=== PATIENT | male | born 2005 | race Caucasian/White ===

== ENCOUNTER 2025-02-02 13:44 | Emergency (ER) | payer MEDICAID ==
[~2025-02-02] VITALS: Ht 180.3 cm; Wt 66.0 kg
[2025-02-02 14:06] VITALS: BP 112/70; PULSE 88; RESP 16; TEMP 97.8; O2SAT 98
[2025-02-02] MEDS ORDERED: OLAN-38 PO (14:19)
--- NOTE | 2025-02-02 14:20 | Physician Documentation ---
HPI ~ General Chief Complaint: Medication Request Stated Complaint: MED REQUEST Time Seen by MD: 14:12 Source: patient Mode of Arrival: POV Exam Limitations: no limitations History of Present Illness HPI Comments 19-year-old male requesting medication refill for his olanzapine for schizophrenia. Reason for Medication Refill: ran out of medication Past Medical History Past Medical History: *PSYCH*, Schizophrenia Past Surgical History: noncontributory Drug Use: none Lives In: Home Occupation: unemployed Review of Systems All Other Systems at this time: Reviewed and Negative Psychiatric: Reports: see HPI Physical Exam Physical Exam Vital Signs: RN Vital Signs have been reviewed: Yes, Temperature: 97.8, Source: Temporal, Heart Rate: 88, Respiratory Rate: 16, BP: 112/70, Pulse Oximetry: 98, Weight: 66.000 Oxygen Flow Rate: 0 Physical Exam General: Alert, no apparent distress. HEENT: moist mucous membranes. Neck: Full range of motion. Respiratory: No respiratory distress speaking in full sentences Chest: No accessory muscle use. Cardiovascular: Appears well perfused Neurologic: Oriented x4. Psychiatric: Normal mood and affect. Skin: Normal color, warm and dry. No edema, no ecchymosis. Progress Results/Orders Results/Orders Vital Signs 02/02/25 14:06 Temp 97.8 Pulse 88 Resp 16 B/P (MAP) 112/70 Pulse Ox 98 O2 Flow Rate 0 Medical Decision Making Additional information obtaine: old records Findings Patient will receive refill of medication discussed following up with primary care for further treatment and evaluation Differential Dx:Considerations: Include: Psychosocial, Medication refill Departure Time of Disposition: 14:18 Disposition: 01 HOME / SELF CARE / HOMELESS Impression: Primary Impression: General medical exam Condition: Stable Discharge Instructions: Medical Screening Exam Referrals: NO PRIMARY CARE PROVIDER (PCP) Prescriptions Olanzapine (Olanzapine) 10 Mg Tablet 1 TAB PO HS for 30 Days, #30 TAB 0 Refills Prov: ASHLEY GAMEZ NP 02/02/25 Education Educated: Patient Educated regarding: diagnosis, treatment, need for follow up Signature Scribe Signature: No scribed Attestation: The note accurately reflects work and decisions made by me.Ashley CARL 02/02/25 14:19 ASHLEY GAMEZ NP Feb 02, 2025 14:20
== END 2025-02-02 14:40 | disposition home or self-care (01) ==
LOC: ER 13:45
DX: Z00.00 Encounter for general adult medical examination without abnormal findings (principal); F20.9 Schizophrenia, unspecified; Z76.0 Encounter for issue of repeat prescription
CPT/HCPCS: 99282

== ENCOUNTER 2025-02-22 20:19 | Emergency (ER) | payer MEDICAID ==
[~2025-02-22] VITALS: Ht 180.3 cm; Wt 63.6 kg
[~2025-02-22 20:19] MED LIST: OLAN-38 PO
--- NOTE | 2025-02-22 21:25 | Physician Documentation ---
History of Present Illness ~ Chief Complaint: Mental Health Eval Stated Complaint: MH Time Seen by MD: 21:19 HPI This is a 20-year-old gentleman who presents with a request to be placed on 72 hour mental health hold. He states that he is experiencing auditory hallucinations, disorganized thoughts, delusions. This has been going on for a while. No palliating or aggravating factors. He is supposed to be on olanzapine at home. He reports use of marijuana, vaping nicotine, use of meth. With a respect to somatic complaints he complains of chronic shortness a breath. No significant change, not really affecting, right now. Denies any chest pain. Medication Reconciliation Allergies: Coded Allergies: No Known Allergies (Unverified , 02/22/25) Scheduled Olanzapine (Olanzapine), 1 TAB PO HS, (Reported) Discontinued Medications Olanzapine (Olanzapine), 1 TAB PO HS Discontinued Reason: Other Past Medical History Past Medical History: *PSYCH*, Schizophrenia Past Surgical History: noncontributory Drug Use: none Lives In: Home Occupation: unemployed Review of Systems ROS 10 point review of systems was performed and unless noted above in HPI is negative for acute process/complaint. Physical Exam Vital Signs: Temperature: 98.2, Source: Temporal, Heart Rate: 88, Respiratory Rate: 16, BP: 128/76, Pulse Oximetry: 96, Weight: 63.600 Physical Exam GENERAL: Awake, alert, oriented, GCS 15, no apparent distress, non-toxic appearing, answers questions, follows commands appropriately. Pleasant young man who was examined in RAp room HEENT: Atraumatic, normocephalic, pupils equal, extraocular muscles intact, sclerae anicteric, mucus membranes moist, oropharynx is clear, no stridor. NECK: supple, full active range of motion, trachea midline, no thyromegaly, no lymphadenopathy, no JVD. CARDIOVASCULAR: regular rate/rhythm, no murmurs/gallops/rubs, Pulses are 2+ in all extremities and symmetric. Capillary refill less than 2 seconds. PULMONARY: Nonlabored, good air movement ,no respiratory distress, speaking in full sentences, clear to auscultation bilaterally, no wheezing, no ronchi, no rales, no accessory muscle use. GASTROINTESTINAL: Soft, non-tender, non-distended, normal active bowel sounds, no organomegaly, no pulsatile masses, no CVA tenderness. NEUROLOGIC: Lucid with normal mental status. Normal facial symmetry. Moves all extremities symmetrically and with purpose. No truncal ataxia. Speech is fluid without evidence of dysarthria or aphasia, no focal deficits appreciated. MUSCULOSKELETAL: There is full range of motion of all extremities. There is no joint pain or joint swelling or joint erythema. There is no muscle pain or tenderness or swelling. EXTREMITIES: warm, well-perfused, no cyanosis, no clubbing, no edema, no acute deformities. Skin: warm, dry, no rashes or lesions, no jaundice, no petechiae orpurpura. No ecchymosis. PSYCHIATRIC: Normal affect, normal insight, normal concentration. Focused exam: [Currently isn't responding to internal stimuli] Progress Results/Orders Results/Orders Orders - MARK CANALES DO Med Rec (02/22/25 21:21) 1799.11 (02/22/25 21:21) Close Observation Level (02/22/25 21:21) Covid19 Binax Poc Result Entry (02/22/25 21:21) Substance Use Navigator (02/22/25 21:21) Regular Diet (02/23/25 Breakfast) Chest,Two Views (02/22/25 21:21) Completed Orders - MARK CANALES DO Cbc/Diff (02/22/25 21:21) Urinalysis (02/22/25 21:21) Drug Screen, Urine (02/22/25 21:21) Ethanol (02/22/25 21:21) TSH (02/22/25 21:21) Electrocardiogram (02/22/25 21:21) Chest,Two Views (02/22/25 21:21) Hs Troponin I W Calculations (02/22/25 21:21) CMP (02/22/25 21:21) Influenza Type A&B Rapid Test (02/22/25 21:50) Nicotine 7mg Patch - 24hr (Habitrol Patc (02/22/25 22:48) Nicotine 14mg Patch-24hr (Habitrol Patch (02/22/25 22:49) Olanzapine Tablet (Zyprexa Tablet) (02/23/25 00:22) Olanzapine Tablet (Zyprexa Tablet) (02/23/25 21:00) Medications Received in ER Medications (Trade) Dose Ordered Sig/Lana Route PRN Reason Start Time Stop Time Status Last Admin Dose Admin (Habitrol patch) 1 patch STK-MED ONCE TD 02/22/25 22:49 02/23/25 03:28 DC 02/22/25 22:49 1 PATCH (Zyprexa tablet) 10 mg STK-MED ONCE .ROUTE 02/23/25 00:22 02/23/25 03:28 DC 02/23/25 00:24 10 MG Vital Signs 02/22/25 02/22/25 20:21 21:18 Temp 98.2 Pulse 88 Resp 16 18 B/P (MAP) 128/76 Pulse Ox 96 Laboratory Tests Test 02/22/25 21:40 02/22/25 21:49 02/22/25 21:50 Urine Specimen Description Cln catch midstream Urine Color Yellow Urine Clarity Clear Urine pH 6.0 Urine Specific [place] 1.010 Urine Protein Negative Urine Glucose (UA) Negative Urine Ketones Negative Urine Occult Blood Negative Urine Nitrite Negative Urine Bilirubin Negative Urine Urobilinogen 0.2 Urine Leukocyte Esterase Negative Volume Urine Centrifuged 10 ml Urine Comment Urine Opiates Screen Negative Urine Methadone Screen Negative Urine Fentanyl Screen Negative Urine Barbiturates Screen Negative Urine Phencyclidine Screen Negative Urine Amphetamines Screen Negative Urine Benzodiazepines Screen Negative Urine Cocaine Screen Negative Urine Cannabinoids Screen Positive Drug Screen Comment White Blood Count 7.8 Red Blood Count 5.32 Hemoglobin 16.6 Hematocrit 48.5 Mean Corpuscular Volume 91.1 Mean Corpuscular Hemoglobin 31.2 H Mean Corpuscular Hemoglobin Concent 34.2 Red Cell Distribution Width 13.2 Platelet Count 286 Mean Platelet Volume 8.0 Neutrophils (%) (Auto) 59.0 Lymphocytes (%) (Auto) 25.6 Monocytes (%) (Auto) 11.1 Eosinophils (%) (Auto) 3.9 Basophils (%) (Auto) 0.4 Neutrophils # (Auto) 4.6 Lymphocytes # (Auto) 2.0 Monocytes # (Auto) 0.9 Eosinophils # (Auto) 0.3 Basophils # (Auto) 0.0 CBC Comment Sodium Level 141 Potassium Level 3.5 Chloride Level 104 Carbon Dioxide Level 31.3 Anion Gap 6 L Blood Urea Nitrogen 18 Creatinine 1.21 H Estimated GFR/1.73 m2 76 BUN/Creatinine Ratio 14.9 Glucose Level 72 Calcium Level 9.0 Total Bilirubin 0.3 Aspartate Amino Transf (AST/SGOT) 36 Alanine Aminotransferase (ALT/SGPT) 20 Alkaline Phosphatase 90 Troponin I High Sensitivity 6 Total Protein 7.9 Albumin 4.5 Globulin 3.4 Albumin/Globulin Ratio 1.3 Thyroid Stimulating Hormone (TSH) 1.83 Chemistry Comments Ethyl Alcohol Level < 10 Influenza Type A Antigen Negative Influenza Type B Antigen Negative SARS-CoV-2 Antigen (Rapid) Negative Medical Decision Making Additional information obtaine: family Findings Facility Status: ED Holds, [facility] process The plan was discussed with the patient, who demonstrates clear understanding of the plan and is in agreement with the plan unless otherwise noted in the chart. All questions have been answered, all concerns were addressed unless otherwise documented. I was available throughout their ED stay for frequent reassessment and questions. Differential Diagnoses (considered and possible or likely): [Most likely represents under treat it or decompensated psychiatric disease, additionally considerably possible exacerbation 2nd to of methamphetamine use, less likely to be delirium secondary to UTI, thyrotoxicosis, clinically not consistent with a meningitis or encephalitis. Shortness a breath could represent asthma versus COVID, less likely bacterial pneumonia, less likely ACS] ??Differential Diagnoses (considered and unlikely, not requiring evaluation currently): [See above] MDM Data Please see [facility] for the following: Independent Historians and external Records Review. Historian: [Patient] Independent Historians: ?[Family] Medication Management: [Reviewed medication list] Social History and determinants: [Reviewed] Please see the body of the note for the following: Any independent interpretations of ECG, imaging studies. All vitals signs/haemodynamics, ordered tests were independently reviewed and interpreted by myself. Nursing triage complaint and vitals reviewed, additional nursing notes were reviewed as available and I agree unless otherwise noted or documented in contradiction in the chart Vital Signs: Independently reviewed Labs: Independently interpreted Imaging: Independently interpreted Old Medical Records: Independently reviewed, see HPI for relevant summary and information Pulse Oximetry: [99%] interpreted as [normal on room air] by me [Continuous Improvement Consultant: [Regular Rate, Regular rhythm, no ectopy, NSR] reviewed and interpreted by me] Additionally notably showing: [Hemodynamics reviewed. The patient is hemodynamically stable, no evidence of tachycardic, hypotension, respiratory distress. CBC normal. Chemistry panel is unremarkable. Troponin is negative. Thyroid studies are normal. Urine negative for urinary tract infection. Toxicology santoyo el as expected positive for cannabinoids, negative for methamphetamines despite of him admitting to use meth. COVID, influenza are negative. Alcohol is negative. Chest x-ray was obtained showing no acute cardiopulmonary disease.] Tests considered but not ordered include: [Advanced imaging has been considerably does not appear to be necessary] Social Determinants of Health Impact: Patient was evaluated in [facility], [facility] [place] healthcare due to below par ratio of patient to medical providers. [] Comorbid Conditions Impacting Present Evaluation and Care/Treatment: [Bernabe ysubstance use, psychiatric disease, untreated or undertreated] Management Discussions with other Healthcare Providers: [Mental health team] Treatment and Disposition Medication Management (Given or considered): []. See EMR for details Consideration for Hospitalization/Escalation/Deescalation of Care: Admission for observation has been considered, [however the patient is able to tolerate p.o., their symptoms are controlled, they are able to rely on oral medications, and their chief complaint/diagnosis can be managed on outpatient basis.] ?ED Course:?[The patient is medically cleared for psychiatric evaluation] ?Shared decision making:?[] Code status:?FULL Please see the full Electronic Medical Record for full details of nursing documentation, medications list, other records of complete past medical history and conditions, vital signs, laboratory studies, and any radiologic study interpretations by radiologists. Portions of this note were completed using [employer] dictation software and as a result there may exist minor errors in spelling. I have reviewed elements of past family and social history and agree as included in note. Differential Dx:Considerations: Include: Alcohol abuse, Anxiety, Bipolar disorder, Conversion disorder, Depression, Encephaloathy, Panic disorder, Personality disorder, Schizophrenia, Substance abuse, Suicidal; Unlikely: Homicidal Departure Disposition: 30 STILL A PATIENT Impression: Primary Impression: Mental disorder Additional Impressions: Paranoia Delusions Auditory hallucinations Marijuana use Methamphetamine abuse Condition: Stable Referrals: NO PRIMARY CARE PROVIDER (PCP) Signature Scribe Signature: No scribe Attestation: The note accurately reflects work and decisions made by me.Mark Canales, 02/22/25 21:25 MARK CANALES DO Feb 22, 2025 21:25
--- NOTE | 2025-02-22 21:38 | ELECTROCARDIOGRAPH REPORT ---
[facility] Test Date: 2025-02-22 Test Time: 21:35:00 Pat Name: REESE MERCER Department: EMERGENCY ROOM Room: Gender: M Second Ride Fare Collector: MITUL : 2005 Requested By: JACKY CANALES Order Number: [id number] Reading MD: Dr. MALGORZATA Villareal Measurements Intervals [place] Rate: 85 P: 73 CA: 145 QRS: 88 QRSD: 95 T: 38 QT: 347 QTc: 413 Interpretive Statements Sinus rhythm Consider right atrial enlargement Borderline ST elevation, lateral leads Baseline wander in lead(s) I,III,aVL Electronically Signed On 02-24-2025 9:36:[address] MALGORZATA Villareal Please click the below link to view image of tracing.
--- NOTE | 2025-02-22 21:42 | RADIOLOGY REPORT ---
Procedure: DI CHEST,TWO VIEWS 02/22/2025 09:27 PM Indication: Chronic shortness a breath Comparison: None TECHNIQUE: DI CHEST,TWO VIEWS FINDINGS/IMPRESSION: The lungs are clear. The cardiomediastinal silhouette is unremarkable. No pleural effusion or pneumothorax. No acute osseous abnormality.
[2025-02-22 22:03] LABS: LEUKOCYTE ESTERASE ,URINE NEGATIVE (Neg); NITRITES, URINE NEGATIVE (Neg); OCCULT BLOOD,URINE NEGATIVE (Neg)
[2025-02-22 22:05] LABS: UA COLLECTION TYPE CLN CATCH MIDSTREAM
[2025-02-22] MEDS: nicotine 7mg patch - 24hr TD ONE (22:48)
[2025-02-22] MEDS: nicotine 14mg patch - 24hr TD ONE (22:49)
[2025-02-23 02:36] LABS: CREATININE 1.21 MG/DL (0.60-1.10); ETHANOL < 10 MG/DL (<10); TOTAL CARBON DIOXIDE 31.3 MMOL/L (24-32); eCRCL 88 ML/MIN; eGFR 76 ML/MIN
[2025-02-23 02:37] LABS: URINE AMPHETAMINE SCREEN NEGATIVE (Neg); URINE BARBITUATE SCREEN NEGATIVE (Neg); URINE BENZODIAZEPINES SCREEN NEGATIVE (Neg); URINE CANNABINOID SCREEN POSITIVE (Neg); URINE COCAINE SCREEN NEGATIVE (Neg); URINE METHADONE SCREEN NEGATIVE (Neg); URINE OPIATE SCREEN NEGATIVE (Neg); URINE PHENCYCLIDINE SCREEN NEGATIVE (Neg)
[2025-02-23 02:54] LABS: MEAN PLATELET VOLUME 8.0 FL (7.4-10.4); RED CELL DISTRIBUTION WIDTH 13.2 % (11.5-14.5)
[2025-02-23] MEDS ORDERED: OLAN-38 PO (03:00)
[2025-02-23 03:58] LABS: INFLUENZA TYPE A ANTIGEN RAPID NEGATIVE (Negative); INFLUENZA TYPE B ANTIGEN RAPID NEGATIVE (Negative)
[2025-02-23] MEDS ORDERED: potassium CL 10mEq/100ml bag 100 ML IV SCH (04:40)
[2025-02-23] MEDS ORDERED: magnesium sulf-water 2g/50mL 50 ML IV ONE (04:40)
[2025-02-23 08:00] VITALS: BP 111/64; PULSE 83; TEMP 97.5; O2SAT 98
[2025-02-23 08:20] VITALS: RESP 18
[2025-02-23] MEDS: nicotine 21mg patch - 24 hr TD SCH (10:31)
== END 2025-02-23 13:26 | disposition home or self-care (01) ==
LOC: ER 20:19
DX: F20.9 Schizophrenia, unspecified (principal); F12.90 Cannabis use, unspecified, uncomplicated; F15.10 Other stimulant abuse, uncomplicated; F17.290 Nicotine dependence, other tobacco product, uncomplicated; Z79.899 Other long term (current) drug therapy; Z20.822 Contact with and (suspected) exposure to COVID-19
CPT/HCPCS: 36415; 71046; 80053; 80305; 80320; 81003; 84443; 84484; 85025; 87804; 87811; 93005; 99285

== ENCOUNTER 2025-03-05 15:59 | Emergency (ER) | payer MEDICAID ==
[~2025-03-05] VITALS: Ht 180.3 cm; Wt 66.6 kg
[2025-03-05 16:08] VITALS: BP 107/70; PULSE 93; TEMP 99.5; O2SAT 96
--- NOTE | 2025-03-05 16:58 | Physician Documentation ---
History of Present Illness ~ Chief Complaint: Mental Health Eval Stated Complaint: MH Time Seen by MD: 16:48 HPI 20-year-old male presents to the ED requesting a referral to go to rest pad. States that he was told to come to the ED to request this referral. And asked why he wants to go to rest pad, he states he just needs a place to stay for a while. When asked why he would meet criteria to stay at rest pad, he states he has a disorganized thoughts. Denies any HI denies any SI denies any history of previously diagnosed psychosis or psychiatric illnesses. Day of Onset: Mar 05, 2025 Medication Reconciliation Allergies: Coded Allergies: No Known Allergies (Unverified , 02/22/25) Scheduled Olanzapine (Olanzapine), 1 TAB PO HS, (Reported) Past Medical History Past Medical History: *PSYCH*, Schizophrenia Past Surgical History: noncontributory Drug Use: none Lives In: Home Occupation: unemployed Review of Systems All Other Systems at this time: Reviewed and Negative ROS As stated above in the HPI, otherwise all systems are reviewed and negative. Physical Exam Vital Signs: Temperature: 99.5, Source: Temporal, Heart Rate: 93, Respiratory Rate: 18, BP: 107/70, Pulse Oximetry: 96, Weight: 66.600 Oxygen Flow Rate: 0 Physical Exam General: Alert, no apparent distress. HEENT: PERRL, EOMI, no injection, moist mucous membranes. Neck: Full range of motion. Respiratory: Lungs clear, no respiratory distress. Chest: No accessory muscle use. Cardiovascular: Regular rate and rhythm, no murmurs. Gastrointestinal: Soft, nontender, nondistended. Bowels sounds present. Extremities: Normal range of motion, no deformity. Neurologic: Oriented x4. Psychiatric: Normal mood and affect. Skin: Normal color, warm and dry. No edema, no ecchymosis. Progress Results/Orders Results/Orders Vital Signs 03/05/25 16:08 Temp 99.5 Pulse 93 Resp 18 B/P (MAP) 107/70 Pulse Ox 96 O2 Flow Rate 0 Medical Decision Making Additional information obtaine: old records Findings Based on my initial interview in the patient's presentation he does not currently meet criteria for psychosis or any other severe psychiatric illness. Done his reported desire to seek longterm at rest pad I do not feel this is appropriate case for a 1798 hold. He does however meet criteria for further evaluation by outpatient therapy via [facility] which I will advise him of Evaluated the patient's previous visit here in the ED where he was placed on a 1799 and then ultimately discharged as he not meet criteria for a hold and has a access to outpatient resources. I agree with the this reasoning and I am going to discharge him from the ED Differential Dx:Considerations: Include: Alcohol abuse, Anxiety, Bipolar disorder, Conversion disorder, Depression, Encephaloathy, Homicidal, Panic disorder, Personality disorder, Schizophrenia, Substance abuse, Suicidal, Other Departure Disposition: 01 HOME / SELF CARE / HOMELESS Impression: Primary Impression: Mental disorder Additional Impression: Anxiety Discharge Instructions: Suicidal Feelings: How to Help Yourself Additional Instructions: Provided the contact info an excessive ability to [facility] further evaluation of the patient's suspected condition. Referrals: NO PRIMARY CARE PROVIDER (PCP) Education Educated: Patient Educated regarding: diagnosis Signature Scribe Signature: g Attestation: Scribed for David Krueger Director Talent Management by David Horton NP . 03/05/25 17:24 DAVID KRUEGER NP Mar 05, 2025 16:58
[2025-03-05 20:13] VITALS: RESP 16
== END 2025-03-05 20:15 | disposition home or self-care (01) ==
LOC: ER 15:59
DX: F99 Mental disorder, not otherwise specified (principal); F41.9 Anxiety disorder, unspecified; F20.9 Schizophrenia, unspecified; Z56.0 Unemployment, unspecified; Z79.899 Other long term (current) drug therapy
CPT/HCPCS: 99282